=== PATIENT | male | born 1935 | race Caucasian/White ===

== ENCOUNTER 2017-08-02 08:00 | Outpatient (CLI) | payer MEDICARE | END 2017-08-02 08:01 | disposition home or self-care (01) | LOC: BICRAD 08:00 | PROVIDERS: ATTEND Internal Medicine Gastroenterology | DX: K50.10 Crohn's disease of large intestine without complications (principal); R63.4 Abnormal weight loss; R94.5 Abnormal results of liver function studies; R19.7 Diarrhea, unspecified | CPT/HCPCS: 71046 ==

== ENCOUNTER 2017-08-21 10:28 | Emergency (ER) | payer MEDICARE ==
[2017-08-21] MEDS ORDERED: Methocarbamol 500 MG TAB ONE (11:23)
[2017-08-21] MEDS ORDERED: Ketorolac Tromethamine 30 MG/ML VIAL ONE (11:23)
[2017-08-21] MEDS ORDERED: HYDROcodone/Acetaminophen 5/325 mg Tablet ONE (12:38)
--- NOTE | 2017-08-21 14:45 | RAD ---
THREE VIEW LUMBAR SPINE SERIES: CLINICAL HISTORY: Low back pain, right-sided. FINDINGS: Left convexity curvature is centered at the upper lumbar spine. There is age-indeterminate mild supe rior end plate height loss of L2 and minimal superior end plate height loss of L1 and L3. There is m oderate multilevel degenerative change. Slight fragmentation suggested at osteophytosis of the anter osuperior L5 segment. There is atherosclerosis. IMPRESSION: 1. Age-indeterminate areas of height loss of the lumbar spine as above. Correlate clinically. 2. Moderate degenerative change. 3. Atherosclerosis. POS: [facility]
--- NOTE | 2017-08-21 14:47 | RAD ---
THORACIC SPINE RADIOGRAPH SERIES 3 VIEWS: COMPARISON: 03/19/17. INDICATION: Back pain. History of T7 fracture. FINDINGS: Redemonstration of height loss at the mid thoracic spine with mild kyphosis. Multilevel degenerative change present. There is atherosclerotic vascular disease of the imaged aorta. Reference the concurrently dictated lumbar spine radiograph series for further details. IMPRESSION: Grossly stable appearance of thoracic spine comparing to 03/19/17 radiograph. POS: [facility]
== END 2017-08-21 12:50 | disposition home or self-care (01) ==
LOC: SCSER 10:28
DX: M54.5 Low back pain (principal); Z87.891 Personal history of nicotine dependence
CPT/HCPCS: 72072; 72100; 96372; J1885

== ENCOUNTER 2017-08-31 09:03 | Outpatient (CLI) | payer MEDICARE | END 2017-08-31 09:04 | disposition home or self-care (01) | LOC: BICMAMMO 09:03 | PROVIDERS: ATTEND Internal Medicine | DX: Z13.820 Encounter for screening for osteoporosis (principal); M81.0 Age-related osteoporosis without current pathological fracture | CPT/HCPCS: 77080 ==

== ENCOUNTER 2018-07-30 12:03 | Observation (INO) | payer MEDICARE ==
[2018-07-30 12:49] LABS: Hemoglobin 13.5 g/dL (14.0-18.0); Mean Corpuscular HGB CONC 32.9 g/dL (32.0-36.0); Mean Corpuscular Hemoglobin 30.2 pg (27.0-31.0); Mean Corpuscular Volume 91.8 fL (78.0-98.0); Mean Platelet Volume 6.3 fL (7.4-10.4); Platelet Count 187 thou/uL (130-400); RBC Distribution Width 13.2 % (11.5-14.5); Red Blood Cell (RBC) Count 4.48 mill/uL (4.70-6.10); White Blood Cell (WBC) Count 5.2 thou/uL (4.8-10.8)
[2018-07-30 12:55] LABS: ALT (SGPT) 16 U/L (8-55); AST (SGOT) 21 U/L (5-34); Albumin 4.1 g/dL (3.4-4.8); Alkaline Phosphatase 79 U/L (40-150); Anion Gap 14 mmol/L (10-20); BUN (Urea Nitrogen) 21 mg/dL (8.4-25.7); Bilirubin, Total 0.7 mg/dL (0.2-1.2); Calc. Creatinine Clearance 0 mL/min (70-130); Calcium 10.4 mg/dL (7.8-10.44); Carbon Dioxide 29 mmol/L (23-31); Chloride 102 mmol/L (98-107); Estimated GFR-MDRD 63; Globulin 3.7 g/dL (2.4-3.5); Glucose 113 mg/dL (83-110); Potassium 3.9 mmol/L (3.5-5.1); Protein, Total 7.8 g/dL (5.8-8.1); Sodium 141 mmol/L (136-145)
[2018-07-30 13:01] LABS: Band 2 % (5-11); Eosinophils 2 % (0-10); Lymphocytes 12 % (21-51); MDiff Complete? YES; Monocytes 16 % (0-10); Neutrophil 67 % (42-75); Platelet Morphology Comment Appears Adequate; RBC Morphology Normal
[2018-07-30 13:13] LABS: CKMB 5.7 ng/mL (0-6.6)
[2018-07-30] MEDS ORDERED: Aspirin 325 MG TAB ONE (13:15)
--- NOTE | 2018-07-30 13:27 | RAD ---
TWO VIEWS OF THE CHEST: COMPARISON: 08/02/2017. HISTORY: Dizziness and head pressure. Presyncope. FINDINGS: Two views of the chest show normal sized cardiomediastinal silhouette. There is no evidence of consol idation, mass, or pleural effusion. Degenerative changes are seen in the spine. IMPRESSION: No evidence of acute cardiopulmonary disease. POS: [facility]
[2018-07-30] MEDS ORDERED: Nitroglycerin 0.4 MG TAB (25 Tab Bottle) SL PRN (16:23)
[2018-07-30 16:24] VITALS: BMI 30.5
--- NOTE | 2018-07-30 18:20 | ULT ---
CAROTID DUPLEX ULTRASOUND: 07/30/18 INDICATION: Near syncope. FINDINGS: There is diffuse mild atherosclerotic disease involving the common carotid and internal carotid arter ies bilaterally. No hemodynamically significant stenosis is evident based on the velocity measurement s. There is mild partially calcified plaque involving the right carotid bulb and proximal right exter nal carotid artery. There is mild atherosclerotic plaque involving the left carotid bulb. Peak systolic velocity within the right ICA of 94.9 cm/s and the right CCA 156.4 cm/s. Peak systolic velocity in the left ICA was 104.2 cm/s and left CCA was 151.4 cm/s. The right IC/CC ratio was 0.61 and left was 0.69. Antegrade flow was seen to both vertebral arteries. IMPRESSION: No hemodynamically significant stenosis. POS: [facility]
--- NOTE | 2018-07-30 18:40 | HP ---
CHIEF COMPLAINT: Near syncope. HISTORY OF PRESENT ILLNESS: This patient is an 83-year-old male with history of ulcerative colitis without any neuro or cardiac history. The patient reports that he awoke in the middle of the night last evening to go to the bathroom and he felt a sensation in his neck and his head like it was going to explode. He managed himself rest and back to sleep. When he woke up this morning, he had exacerbation of his chronic back pain, which he said is a bit unusual and he felt like he could not mentally focus and was lightheaded and dizzy and felt like he might pass out. He denies actually having any syncope. He reports that he has had some similar spells in the past, which were brief. He denies specifically any chest pain, shortness of breath or nausea presently. He still feels a little bit dizzy when he gets up and around, but better if he is still. He denies any specific cardiac history, although he did have a stress test several months ago at his primary care physician's office (Dr. Adebayo Tavarez). PAST MEDICAL HISTORY: Notable for chronic back pain with apparent vertebral compression fractures related to osteoporosis. He has ulcerative colitis. PAST SURGICAL HISTORY: Appendectomy, herniorrhaphy, total knee replacement bilaterally, cataract ectomy and vertebroplasty by Dr. Miller. FAMILY HISTORY: Mother had diabetes. Sister who is couple of years older than him has dementia. SOCIAL HISTORY: The patient has occasional alcohol use. He denies tobacco. He is single but has a significant other that he refers to her as his "friend." He is full code and his daughter would be his surrogate decision maker and she works at this facility in Day Surgery. Her name is Fifi Leos. REVIEW OF SYSTEMS: The patient only reports some slight discomfort in the left groin area when he is straining, but all other systems were reviewed and all pertinent positives and negatives noted in the history of present illness. ALLERGIES: NSAIDS. HOME MEDICATIONS: 1. Prilosec 1 p.o. daily. 2. Fosamax 70 mg weekly. 3. Gabapentin 600 mg b.i.d. 4. Ferrous sulfate 27 mg p.o. daily. 5. Vitamin D3 of 5000 units daily. 6. Multivitamin one daily. 7. Mesalamine one p.o. b.i.d. 8. Prednisone 10 mg b.i.d. 9. Azathioprine 50 mg t.i.d. 10. Calcium 600 mg b.i.d. 11. Vitamin B complex one p.o. daily. PHYSICAL EXAMINATION: VITAL SIGNS: BP 161/85, pulse originally in the emergency room was 137, was down to 90 at the time of transfer, respirations 19, O2 saturations 94% on room air. GENERAL APPEARANCE: Age-appropriate male in no distress. He is awake, alert, oriented, pleasant, and cooperative. NECK: Supple and symmetric without bruit auscultated. HEART: Regular with 2/6 murmur systolic heard throughout the precordium, but more in the aortic position. LUNGS: Clear to auscultation bilaterally. Good chest wall expansion and air exchange. No wheezes or rales. ABDOMEN: Soft, nontender, and nondistended. Positive bowel sounds. No masses. No organomegaly. EXTREMITIES: Lower extremities show no evidence of cyanosis, clubbing, or edema. SKIN: Warm and dry. NEUROLOGICAL: Appears to be fully intact with no focal deficits. He is very appropriate and accurate in his conversation. PSYCH: The patient has normal affect and behavior. LABORATORY DATA: White count 5.2, hemoglobin 13.5, platelets 187, 67% neutrophils, 2% bands, 12% lymphocytes, 16% monocytes. Sodium 141, potassium 3.9, chloride 102, CO2 29, BUN 21, creatinine 1.11, glucose 113, calcium 10.4, AST 21, ALT 16, troponin 0.269, albumin 4.1. Chest x-ray shows no evidence of cardiopulmonary disease. EKG shows regular tachycardia which at the rate of 140. He does have a baseline bundle branch block. IMPRESSION AND PLAN: 1. Near syncopal type episode. The patient's symptoms are little difficult to find concerning for the sensation of pressure in his head and neck in the evening. We will obtain a head CT as I cannot rule out possibility of this was some type of anginal equivalent. He will remain on rule out protocol with serial enzymes and telemetry. I will also obtain echocardiogram given that he has a heart murmur that he has not been made aware of in the past. We will also get carotid Dopplers given the bundle branch block. We will also check a D-dimer. It is unclear if the patient's bundle branch block is new or not. The patient reports he has never been told he had any abnormalities of his EKG. Therefore, with these symptoms and a new bundle branch block in the setting of slightly elevated troponins, we will go ahead and get Cardiology consult as well. 2. Tachycardia. Regular. Present at the time of presentation to the ED, but resolved spontaneously and quickly. 2. History of ulcerative colitis. We will continue with his usual oral medication regimen. 3. History of osteoporosis. Continue Fosamax. Job ID: [id number] [facility]
--- NOTE | 2018-07-30 19:07 | CON ---
DATE OF CONSULTATION: 07/30/2018 REASON FOR CONSULTATION: Dizziness, lightheadedness, and presyncope. HISTORY OF PRESENT ILLNESS: Mr. Roldan is a very pleasant 83-year-old gentleman with no significant past medical history, who recently states he awoke with head amor. He states his neck and head felt like they were going to explode. This subsided after 1 hour. He then went back to bed. He then awoke and had intermittent dizziness, lightheadedness and felt like he was going to pass out. He was seen and evaluated in the emergency room. Likely, one of the EKGs done while in the emergency room did suggest SVT. Heart rate was in the 140s. He does have an underlying left bundle-branch block. He recently underwent a noninvasive stress study at Dr. Tavarez' office that was negative for ischemia. PAST MEDICAL HISTORY: Chronic back pain, ulcerative colitis, appendectomy, total knee replacement, cataract surgery, and vertebroplasty. SOCIAL HISTORY: Occasional alcohol use. No current tobacco use. ALLERGIES: NONSTEROIDALS. HOME MEDICATIONS: Include; 1. Prilosec. 2. Fosamax. 3. Gabapentin. 4. Iron sulfate. 5. Vitamin D3. 6. Multivitamin. 7. Mesalamine. 8. Prednisone. 9. Calcium. 10. Vitamin B. REVIEW OF SYSTEMS: A 10-point review of systems is reviewed and as above, otherwise negative. PHYSICAL EXAMINATION: GENERAL: Patient is a pleasant gentleman, who is in no acute distress. The patient appears their stated age. VITAL SIGNS: Blood pressure 160/82, pulse 84, and temperature 98. NEUROLOGIC: The patient is alert and oriented x3 with no focal neurologic deficits. HEENT: Sclerae without icterus. Mouth has moist mucous membranes with normal pallor. NECK: No JVD. Carotid upstroke brisk. No bruits bilaterally. LUNGS: Clear to auscultation with unlabored respirations. BACK: No scoliosis or kyphosis. CARDIAC: Regular rate and rhythm with normal S1 and S2. No S3 or S4 noted. No significant rubs, murmurs, thrills, or gallops noted throughout the precordium. PMI is not displaced. There is no parasternal heave. ABDOMEN: Soft, nontender, nondistended. No peritoneal signs present. No hepatosplenomegaly. No abnormal striae. EXTREMITIES: 2+ femoral and 2+ dorsalis pedis pulses. No cyanosis, clubbing, or edema. SKIN: No gross abnormalities. LABORATORY DATA: Peak troponin 0.26, creatinine 1.1. Hemoglobin 13.5, white blood cell count 5.2. EKG, as above. IMPRESSION: 1. Supraventricular tachycardia. 2. Elevated troponin. RECOMMENDATION: The increased troponin likely ino-CC-[id number] elevation AR type 2 and not felt to be type 1. This is secondary to SVT. At this point, we will load with digoxin. We will consult with EP on Wednesday for further recommendations. The patient would likely benefit from ablation given presyncopal symptoms. Job ID: [id number]
[2018-07-30 19:35] LABS: Troponin I 0.392 ng/mL (< 0.028)
[2018-07-30] MEDS: Digoxin 0.25 MG TAB PO SCH (19:45)
[2018-07-30] MEDS: Gabapentin 300 MG CAP PO SCH (20:32)
[2018-07-30] MEDS: Mesalamine DR 400 mg Capsule PO SCH (20:33)
[2018-07-30] MEDS ORDERED: predniSONE 20 MG TAB PO SCH (21:00)
[2018-07-31] MEDS: Digoxin 0.25 MG TAB PO SCH ×2 (00:19→06:11)
[2018-07-31] MEDS ORDERED: Amlodipine 5 MG TAB PO SCH (05:00)
[2018-07-31] MEDS ORDERED: Labetalol HCl 100 MG/20 ML VIAL SLOW IVP PRN (08:44)
[2018-07-31] MEDS ORDERED: azaTHIOprine 50 MG TAB PO SCH (09:00)
[2018-07-31] MEDS: azaTHIOprine 50 MG TAB PO SCH (09:14)
[2018-07-31] MEDS: Calcium Carbonate 600 MG TAB PO SCH (09:15)
[2018-07-31] MEDS: Ferrous Sulfate 325 MG TAB PO SCH (09:15)
[2018-07-31] MEDS: Multivitamin W/ Minerals 1 TAB PO SCH (09:15)
[2018-07-31] MEDS: Mesalamine DR 400 mg Capsule PO SCH ×3 (09:21→21:08)
[2018-07-31] MEDS: Gabapentin 300 MG CAP PO SCH ×2 (09:22→21:05)
[2018-07-31] MEDS: hydrALAZINE 20 MG/ML VIAL SLOW IVP PRN ×2 (09:28→21:13)
--- NOTE | 2018-07-31 13:06 | PDOC.CTH ---
Cardiology Progress Note - Subjective Patient reports one dizzy spell earlier. No near syncope. BP elevated. No CP/ SOB. - Objective Vital Signs Temp Pulse Resp BP BP Pulse Ox 07/31/18 12:00 167/78 H 07/31/18 10:10 97.7 F 96 16 159/76 H 96 07/31/18 09:28 87 208/93 H 07/31/18 08:21 97.9 F 80 16 208/93 H 95 07/31/18 06:11 92 07/31/18 05:10 79 183/80 H 07/31/18 04:28 98.1 F 81 18 183/80 H 93 L 07/31/18 00:20 97.8 F 82 16 169/87 H 93 L 07/31/18 00:19 82 Weight 180 lb 07/30/18 07/31/18 08/01/18 05:59 06:59 06:59 Intake Total Output Total Balance - Physical Examination General/Neuro: alert & oriented x3 Neck: no JVD present Lungs: CTA Heart: RRR Abdomen: NT/ND - Telemetry Telemetry Rhythm: SR - Labs Result Diagrams: 07/30/18 12:31 07/30/18 12:31 Troponin/CKMB CK-MB (CK-2) 5.7 ng/mL (0-6.6) 07/30/18 12:31 Troponin I 0.392 ng/mL (< 0.028) H* 07/30/18 18:43 - Assessment/Plan 1. Dizziness 2. Cardiac Murmur 3. Uncontrolled HTN 4. PSVT 5. Elevated Trop - demand ischemia Add ARB for HTN. Patient given history of being on meds years ago prior to weight loss. Then recently has gained weight and not been checking BP at home. ECHO pending, but will r/o significant valvular disease. EP to see tomorrow.
[2018-07-31] MEDS ORDERED: Losartan 25 MG TAB PO SCH ×2 (13:15→21:00)
--- NOTE | 2018-07-31 16:36 | PDOC.PN ---
- Subjective Encounter Start Date: 07/31/18 Encounter Start Time: 16:33 Patient lying in bed with friend at bedside. He denies chest pain, palpitations , shortness of breath. He reports feeling dizziness walking to the bathroom this morning, BPs remain elevated - Objective Resuscitation Status - Order Detail: 07/30/18 16:11 Resuscitation Status Routine Resuscitation Status: FULL: Full Resuscitation Discussed with: Patient MAR Reviewed: Yes Vital Signs & Weight: Vital Signs (12 hours) Temp Pulse Resp BP BP Pulse Ox 07/31/18 15:53 98.1 F 83 16 184/84 H 93 L 07/31/18 12:00 167/78 H 07/31/18 10:10 97.7 F 96 16 159/76 H 96 07/31/18 09:28 87 208/93 H 07/31/18 08:21 97.9 F 80 16 208/93 H 95 07/31/18 06:11 92 07/31/18 05:10 79 183/80 H Weight Weight 180 lb I&O: 07/30/18 07/31/18 08/01/18 05:59 06:59 06:59 Intake Total Output Total Balance Result Diagrams: 07/30/18 12:31 07/30/18 12:31 Radiology Reviewed by me: Yes Phys Exam - Physical Examination Constitutional: NAD HEENT: PERRLA, moist MMs, oral pharynx no lesions Neck: no nodes, supple Respiratory: no wheezing, clear to auscultation bilateral Cardiovascular: RRR, no rub 2/6 systolic murmur Gastrointestinal: soft, non-tender, positive bowel sounds Musculoskeletal: no edema, pulses present Neurological: non-focal, moves all 4 limbs Lymphatic: no nodes Psychiatric: normal affect, A&O x 3 Skin: cap refill <2 seconds Dx/Plan (1) PSVT (paroxysmal supraventricular tachycardia) Code(s): I47.1 - SUPRAVENTRICULAR TACHYCARDIA Status: Acute (2) Dizziness Code(s): R42 - DIZZINESS AND GIDDINESS Status: Acute (3) Near syncope Status: Acute (4) HTN (hypertension) Code(s): I10 - ESSENTIAL (PRIMARY) HYPERTENSION Status: Acute - Plan cont current plan of care * Continue BP control with losartan and prn IV hydralazine and lebatolol * Appreciate further recommendation from EP services * Monitor on telemetry * Monitor vitals and cbc, bmp * Cardiology services following, await echo
[2018-08-01] MEDS: hydrALAZINE 20 MG/ML VIAL SLOW IVP PRN (01:22)
[2018-08-01 08:47] VITALS: TEMP 97.9
[2018-08-01] MEDS ORDERED: Amlodipine 5 MG TAB PO SCH (09:00)
[2018-08-01] MEDS ORDERED: Lisinopril 5 MG TAB PO SCH (09:00)
--- NOTE | 2018-08-01 09:03 | PDOC.CTH ---
Cardiology Progress Note - Subjective No overnight events. Seen by EP. Suggests 30 day EVR and bblockers for now. - Objective Vital Signs Temp Pulse Resp BP BP Pulse Ox 08/01/18 07:55 97.9 F 84 16 162/72 H 95 08/01/18 05:30 86 145/70 H 08/01/18 03:20 98 F 112 H 20 178/76 H 94 L 08/01/18 02:02 90 168/80 H 08/01/18 01:22 90 204/92 H 08/01/18 01:17 96 204/92 H 07/31/18 23:22 98.2 F 88 20 174/82 H 93 L 07/31/18 21:13 92 202/92 H Weight 181 lb 11.2 oz 07/31/18 08/01/18 08/02/18 06:59 06:59 06:59 Intake Total 1520 Output Total 720 Balance 800 - Physical Examination General/Neuro: alert & oriented x3 Neck: no JVD present Lungs: CTA Heart: RRR Abdomen: NT/ND - Telemetry Telemetry Rhythm: SR - Labs Result Diagrams: 07/30/18 12:31 07/30/18 12:31 Troponin/CKMB CK-MB (CK-2) 5.7 ng/mL (0-6.6) 07/30/18 12:31 Troponin I 0.392 ng/mL (< 0.028) H* 07/30/18 18:43 - Assessment/Plan 1. Dizziness 2. Cardiac Murmur 3. Uncontrolled HTN 4. PSVT 5. Elevated Trop - demand ischemia Norvasc added for HTN to start today. Will add Toprol for SVT history. ECHO to be repeated given limited AV images. Elevated trop most likely demand ischemia with increased BP and SVT. Will order stress to r/o ischemia since patient already NPO and plan to monitor BP today. If BP stabilizes and stress negative, possible discharge today once repeat ECHO read.
[2018-08-01] MEDS: Ferrous Sulfate 325 MG TAB PO SCH (10:12)
[2018-08-01] MEDS: azaTHIOprine 50 MG TAB PO SCH (10:12)
[2018-08-01] MEDS: Multivitamin W/ Minerals 1 TAB PO SCH (10:12)
[2018-08-01] MEDS: Calcium Carbonate 600 MG TAB PO SCH (10:12)
[2018-08-01] MEDS: Mesalamine DR 400 mg Capsule PO SCH ×2 (10:12→14:23)
[2018-08-01] MEDS: Gabapentin 300 MG CAP PO SCH (10:12)
--- NOTE | 2018-08-01 15:22 | NM ---
MYOCARDIAL PERFUSION SCAN: INDICATIONS: Chest pain. TECHNIQUE: The patient was given 10 millicuries of technetium sestamibi for rest imaging and 30 millicuries for stress imaging. Adenosine protocol was followed. The left ventricle was imaged with SPECT imaging. The left ventricle was imaged in three planes. At tenuation correction images were obtained. FINDINGS: There is normal activity throughout the left ventricle on stress and rest images. No evidence of rev ersible ischemia. Ejection fraction recorded at 70%. No wall motion abnormality. IMPRESSION: Negative sestamibi stress test. POS: [facility]
[2018-08-01] MEDS ORDERED: Acetaminophen 325 MG TAB PO PRN (15:41)
[2018-08-01 15:53] VITALS: BP 144/67
[2018-08-01] MEDS ORDERED: ADENOSINE 60 MG/20 ML VIAL ONE (16:04)
--- NOTE | 2018-08-01 18:56 | CON ---
DATE OF CONSULTATION: 08/01/2018 I am seeing Mr. Roldan at our [facility] floor as an Electrophysiology retail client solutions consultant. His problems are: 1. Near syncopal spell. 2. Presentation with supraventricular tachycardia, rate 140 with spontaneous termination. 3. Chronic right bundle branch block. 4. Moderate aortic stenosis based on 2D echo from 08/01/2018 with LVEF 55% to 60%, mild mitral regurgitation and tricuspid regurgitation. Left atrium is moderate to severely enlarged. 5. History of hypertension. ALLERGIES: NONSTEROIDAL ANTI-INFLAMMATORY DRUGS. MEDICATIONS: At home include: 1. Prilosec. 2. Fosamax. 3. Gabapentin. 4. Ferrous sulfate with vitamin D3. 5. Multivitamin. 6. Mesalamine. 7. Prednisone. 8. Azathioprine. 9. Calcium. 10. Vitamin B. SUBJECTIVE: Mr. Roldan is here admitted on the with complaints of neck fullness and exploding discomfort in the head. He felt still lightheaded and dizzy next day when he woke up and decided to come to the ER. In the ER, he was noted to be in tachyarrhythmia, which spontaneously resolved. Actual duration is unclear. He was monitored subsequently for last 2 days and no recurrences are noted. His symptoms have normalized. His blood pressure was elevated and initiated on metoprolol. His blood pressure improved now to 144/67 range. He denies PND, orthopnea, or lower extremity edema. No fever, chills, or cough. No stroke-like symptoms. The rest of 12-point review of system otherwise unremarkable. PAST MEDICAL HISTORY: As above. SOCIAL HISTORY: The patient denies smoking EtOH or drug abuse. He does drink alcohol only socially. He has significant other who refers as a friend. PAST SURGICAL HISTORY: Significant for appendectomy, herniorrhaphy, total knee replacement bilaterally, cataract surgery, and vertebroplasty in the past. No prior history of heart disease or heart attacks are noted. FAMILY HISTORY: Significant for mother had diabetes and sister had dementia. OBJECTIVE DATA: VITAL SIGNS: Blood pressure is initially 160/82, heart rate 86, respirations 16, temperature 98 degrees Fahrenheit. At time of my exam, blood pressure was 168/80, heart rate 90, respirations 12. The patient is afebrile, temperature 98 degrees Fahrenheit. PHYSICAL EXAMINATION: GENERAL: Alert and oriented man with elevated BMI, in no apparent distress. NECK: Supple. Jugular veins not distended. CHEST: Coarse without crackles. HEART: Sounds are regular to rate and rhythm. No murmur or gallop. ABDOMEN: Benign. Bowel sounds positive. EXTREMITIES: Lower extremities without edema, clubbing, or cyanosis. Pulses are adequate. NEUROLOGIC: The patient is nonfocal. MUSCULOSKELETAL: Without joint swelling or deformities. SKIN: Without rash. DATABASE: EKG is reviewed. Initial EKG reveals regular tachycardia with right bundle normal axis. The P-waves are difficult to elicit. QTc is 519 milliseconds, QRS duration 128 milliseconds. Subsequent EKG reveals sinus rhythm with still right bundle branch block still present similar to the baseline EKG, rate of 92 beats per minute, QTc 462 milliseconds. Subsequent telemetry strips reveal sinus rhythm. No significant arrhythmias. Nuclear stress test shows appropriate blood pressure response, intermittent ECGs and nuclear images negative for ischemia. LVEF 70% noted. ASSESSMENT AND PLAN: Mr. Roldan is a pleasant 83-year-old gentleman with history of hypertension, now presenting with near syncopal spell, which relatively new for him. His blood pressures and heart rate were both elevated on presentation. He was diagnosed with supraventricular tachycardia, which spontaneously terminated and have never recurred during his hospitalization. His blood pressure is still elevated. He started on metoprolol and is tolerating this medication well. He also has moderate aortic stenosis, although, not felt to be severe enough for consideration of surgery. I have discussed pros and cons about electrophysiology evaluation in his case. At this point, we agreed on continuing medical therapy with beta adrien. He also requested to undergo a monitor. I would like to see him back in the office after composition monitor, especially further symptomatic dizzy or tachyarrhythmia episodes occur. The etiology of SVT is difficult to elicit, reentry type of arrhythmia, possibly AVNRT, possibility but in view of the significant left atrial enlargement, atrial tachycardia was also could be present. Thank you again for allowing me to participate in the care of this patient. Job ID: [id number]
--- NOTE | 2018-08-02 03:17 | DIS ---
DATE OF ADMISSION: 07/30/2018 DATE OF DISCHARGE: 08/01/2018 ALLERGIES: NSAIDS. CHIEF COMPLAINT: Near-syncope/dizziness. FINAL DIAGNOSES: 1. Supraventricular tachycardia, atrioventricular adelaide reentrant tachycardia versus atrial tachycardia with spontaneous resolution; aortic stenosis, moderate; diastolic dysfunction. 2. Hypertension. 3. Osteoporosis. LABORATORY DATA: White blood cell count 5.2, hemoglobin 13.5, and hematocrit 41.2. D-dimer 0.7. Sodium 141, potassium 3.9, chloride 102, BUN 21, and creatinine 1.11. AST 21, ALT 16, and alkaline phosphatase 79. Troponin 0.37 and 0.392 respectively. IMAGING RESULTS: Echocardiogram, normal left ventricular systolic function with EF 60% to 65%, moderate aortic stenosis, and diastolic dysfunction. Carotid Doppler, no hemodynamically significant stenosis. Stress test. Myocardial perfusion scan showed no evidence of reversible ischemia and normal left ventricular systolic function with EF of 70%. CONSULTATIONS: 1. Cardiology consultation, Dr. Andersen. 2. EP consult, Dr. Arias. HOSPITAL COURSE: The patient is a very pleasant 83-year-old male with no significant past medical history, who presented to the ER with complaints of near syncope and dizziness. His symptoms are exacerbated with change of position. The patient denies any chest pain or shortness of breath. He has had intermittent dizziness in the past, because of his near syncope, he presented to the ER for further workup and treatment. Initial EKG performed in the ER showed right bundle-branch block and what appeared to be supraventricular tachycardia with a rate of 140 beats per minute. He did have spontaneous resolution of this rhythm and followup EKG showed sinus rhythm with a right bundle-branch block, no acute ST or T-wave changes, and a ventricular rate of 92 beats per minute. His troponin was indeterminate, and he was admitted for telemetry monitoring and chest pain rule out. The patient did not have any further episodes of tachycardia per telemetry review. He was seen in consultation with Dr. Andersen as well as Dr. Arias. It was decided that the patient would be treated medically for now with beta-adrien, and no immediate plans for ablation would be pursued at this time. Because of the patient's indeterminate troponin, he did undergo a stress test/MPI, which was negative. His echocardiogram on admission showed normal left ventricular systolic function with normal EF and moderate aortic stenosis. The patient's presenting symptoms of dizziness have completely resolved. He denies any chest pain or shortness of breath. Due to his hypertension, he has been initiated on lisinopril as well as amlodipine with good response in his blood pressure. He has also been initiated on Toprol-XL 25 mg to prevent further episodes of tachycardia. He has tolerated his medications without issue. The patient feels well this afternoon after his stress test. He denies any chest pain, shortness of breath, or dizziness. He denies any palpitations. His family is at bedside and all questions answered. PHYSICAL EXAMINATION: VITAL SIGNS: Blood pressure 144/67, temperature 97.9, pulse 78, respirations 18, and O2 saturation 95% on room air. GENERAL: This is a well-appearing elderly male, in no acute distress. HEENT: Atraumatic and normocephalic. Eye movements intact. NECK: Supple, no JVD. No carotid bruits. RESPIRATORY: Regular respiratory rate and pattern, clear to auscultation bilaterally. CV: S1, S2. Regular rate and rhythm. Soft systolic murmur grade 1/6. GI: Soft, nontender. Normal bowel sounds. PERIPHERAL VASCULAR: +2 DP pulses bilaterally, trace edema. MUSCULOSKELETAL: No joint effusion or swelling. NEUROLOGIC: He is awake and alert, nonfocal. SKIN: Normal, dry, no rashes. CONDITION AT DISCHARGE: Stable. DISCHARGE MEDICATIONS: 1. Fosamax 70 mg p.o. daily. 2. Imuran 50 mg tablet 3 tablets p.o. daily. 3. Calcium carbonate 600 mg tablet 2 tablets p.o. daily. 4. Vitamin D3 supplement 5000 unit capsule 5000 units p.o. daily. 5. Ferrous sulfate 27 mg tablet 1 p.o. daily. 6. Gabapentin 600 mg p.o. b.i.d. 7. Mesalamine 1.2 g tablet 1 tablet p.o. daily. 8. Multivitamin 1 tablet p.o. daily. 9. Prilosec 20 mg capsule 1 tablet p.o. daily. 10. Vitamin B complex supplement 1 daily. New medications include; 1. Amlodipine 5 mg one tablet p.o. daily. 2. Lisinopril 10 mg one p.o. daily. 3. Metoprolol succinate 25 mg tablet 1 tablet p.o. daily. DISCHARGE DISPOSITION: Home. PLAN: The patient will be discharged with a 30-day telemetry/event recorder. He will continue his new antihypertensive regimen and monitor his blood pressure at home. He will follow up with both, Dr. Andersen and his primary care doctor, Dr. Tavarez in approximately 2 weeks. He will contact Dr. Andersen's office with further symptoms, tachycardia, or palpitations. The plan of care has been discussed with his family and all questions have been answered at this time. He has been cleared for discharge on medical therapy by both Cardiology and EP. Job ID: [id number]
== END 2018-08-01 17:33 | disposition home or self-care (01) ==
LOC: SCSER 12:03 → 2SW 15:25
PROVIDERS: ADMIT Internal Medicine; ATTEND Internal Medicine
DX: I47.1 Supraventricular tachycardia (principal); I10 Essential (primary) hypertension; M81.0 Age-related osteoporosis without current pathological fracture; G89.29 Other chronic pain; M54.9 Dorsalgia, unspecified; K51.90 Ulcerative colitis, unspecified, without complications; R42 Dizziness and giddiness; R55 Syncope and collapse; I45.10 Unspecified right bundle-branch block; I35.0 Nonrheumatic aortic (valve) stenosis; Z79.52 Long term (current) use of systemic steroids; Z79.899 Other long term (current) drug therapy; Z88.8 Allergy status to other drugs, medicaments and biological substances; Z98.890 Other specified postprocedural states
CPT/HCPCS: 71046; 78452; 80053; 82553; 84484 ×2; 85025; 85379; 93005; 93017; 93306 ×2; 93880; 94760; 96374; 96375; 96376 ×2; 99285; A9500; G0378 ×2; 36415; 96360; J0153; J0360; J7500

== ENCOUNTER 2018-12-21 08:55 | Outpatient (CLI) | payer MEDICARE ==
--- NOTE | 2018-12-21 10:05 | RAD ---
XR Chest Pa Lat @ [facility] HISTORY: Dyspnea COMPARISON: 07/30/2018 FINDINGS: The heart size is normal. The lungs are well expanded without focal areas of consolidation, pneumothorax or pleural effusions. Chronic changes are stable. There are degenerative changes in the spine. Old right-sided rib fractures are present. IMPRESSION: No radiographic evidence of acute cardiopulmonary process.
== END 2018-12-21 08:56 | disposition home or self-care (01) ==
LOC: RAD 08:55
PROVIDERS: ATTEND Internal Medicine Critical Care Medicine
DX: R06.00 Dyspnea, unspecified (principal)
CPT/HCPCS: 71046

== ENCOUNTER 2018-12-27 07:26 | Outpatient (CLI) | payer MEDICARE | END 2018-12-27 07:27 | disposition home or self-care (01) | LOC: CP 07:26 | PROVIDERS: ATTEND Internal Medicine Critical Care Medicine | DX: R06.00 Dyspnea, unspecified (principal) | CPT/HCPCS: 94060; 94727; 94729 ==

== ENCOUNTER 2019-01-18 10:09 | Outpatient (CLI) | payer MEDICARE ==
--- NOTE | 2019-01-18 13:17 | RAD ---
TWO VIEW CHEST: INDICATION: Dyspnea. COMPARISON: 12/21/2018. FINDINGS: Mild cardiomegaly is stable. Lungs appear clear of infiltrate. Vascular markings upper normal and s table. No significant effusion. Rib deformities on the right from old fractures appear stable. Mild apical pleural thickening on the right is stable Stable chest findings, no acute interval change noted. POS: [facility]
--- NOTE | 2019-01-18 13:30 | NM ---
NUCLEAR MEDICINE VENTILATION PERFUSION SCAN: 01/18/19 HISTORY: Shortness of breath. COMPARISON: Chest x-ray done today. The ventilation study was performed using 19.9 millicuries of Xenon 133 gas. This shows air trapping. The perfusion study was performed using 6.6 millicuries 99m technetium MAA. Shows fairly normal dist ribution of the radiopharmaceutical. IMPRESSION: 1. Findings compatible with a very low probability of pulmonary embolus. 2. Evidence for fairly diffuse air trapping. POS: [facility]
== END 2019-01-18 10:10 | disposition home or self-care (01) ==
LOC: NM 10:09
PROVIDERS: ATTEND Internal Medicine Critical Care Medicine
DX: I26.99 Other pulmonary embolism without acute cor pulmonale (principal)
CPT/HCPCS: 71046; 78582; A9540; A9558

== ENCOUNTER 2019-03-08 11:39 | Outpatient (CLI) | payer MEDICARE ==
--- NOTE | 2019-03-13 22:52 | EKG ---
Test Reason : Blood Pressure : / mmHG Vent. Rate : 062 BPM Atrial Rate : 062 BPM P-R Int : 192 ms QRS Dur : 136 ms QT Int : 418 ms P-R-T Axes : 055 059 017 degrees QTc Int : 424 ms Normal sinus rhythm Right bundle branch block Abnormal ECG When compared with ECG of 30-JUL-2018 12:26, Vent. rate has decreased BY 30 BPM Confirmed by LILIA SINGLETON M.D. ([id number]) on 03/13/2019 10:52:41 PM Referred By: TARA Confirmed By:LILIA SINGLETON M.D.
== END 2019-03-08 11:40 | disposition home or self-care (01) ==
LOC: LABBT 11:39
PROVIDERS: ATTEND Surgery
DX: Z01.818 Encounter for other preprocedural examination (principal); C44.92 Squamous cell carcinoma of skin, unspecified
CPT/HCPCS: 93005; 93010

== ENCOUNTER 2019-03-13 09:44 | Day surgery (SDC) | payer MEDICARE ==
[2019-03-08 12:33] VITALS: BMI 36.5
[2019-03-13] MEDS ORDERED: cefOXitin 2 GM VIAL ONE (10:52)
[2019-03-13] MEDS ORDERED: Sodium Chloride 0.9% 100 ML ONE (10:52)
[2019-03-13] MEDS ORDERED: Bupivacaine/Epinephrine 0.25% 30 ML VIAL ONE (11:48)
[2019-03-13] MEDS ORDERED: Bupivacaine HCl 0.5%/Epinephrine 1:200,000/PF 30 ml Vial ONE (11:53)
[2019-03-13] MEDS ORDERED: Lidocaine 2% PF 5 ML VIAL ONE (11:53)
[2019-03-13] MEDS ORDERED: Famotidine/PF 20 mg/2ml Vial ONE (11:57)
[2019-03-13] MEDS ORDERED: Fentanyl 100 MCG/2 ML VIAL ONE (11:57)
[2019-03-13] MEDS ORDERED: Labetalol HCl 100 MG/20 ML VIAL ONE (13:55)
[2019-03-13] MEDS ORDERED: hydrALAZINE 20 MG/ML VIAL ONE (13:57)
[2019-03-13] MEDS ORDERED: PROPOFOL 200 MG/20 ML VIAL ONE (14:42)
[2019-03-13] MEDS ORDERED: Lidocaine 1% PF 5 ML VIAL ONE (14:42)
[2019-03-13] MEDS ORDERED: PHENYLEPHRINE-NS 100 MCG/ML 10 ML SYRINGE ONE (14:42)
[2019-03-13] MEDS ORDERED: Ondansetron PF 4 MG/2 ML Vial ONE (14:42)
--- NOTE | 2019-03-13 14:44 | OP ---
DATE OF PROCEDURE: 03/13/2019 PREOPERATIVE DIAGNOSES: 1. Squamous cell carcinoma, right forearm. 2. Squamous cell carcinoma, left upper extremity. PROCEDURES PERFORMED: 1. Excision of squamous cell carcinoma, right forearm 2.5 cm in greatest diameter and complex layered closure 7.5 cm in length. 2. Wide local excision of skin cancer, left upper arm 3 cm in greatest diameter. 3. Complex layered closure of wound, left upper extremity 9 cm in length. ANESTHESIA: General. ESTIMATED BLOOD LOSS: Minimal. COMPLICATIONS: None. SPECIMENS: Right forearm and left arm lesions sent to Path, which revealed no positive margin. DESCRIPTION OF PROCEDURE: The patient was taken to the operating room and laid supine on the operating room table. After general anesthetic was obtained, the right and left upper extremities were prepped and draped in a sterile fashion. An elliptical incision was used with a 2.5 cm greatest diameter excision in the right arm. Dissection was taken down to the fascia. The specimen was marked with 2 short superior, 1 long lateral, and sent to Path for frozen section, which revealed negative margins. Extensive undermining was performed to facilitate closure under no tension. The wound was closed in multiple layers using Vicryl, Monocryl, and Dermabond. Next, elliptical incision was made in the left upper extremity with a 3 cm greatest diameter incision, 9 cm length incision. The specimen was marked with 2 short superior, 1 long lateral, and frozen section revealed no obvious positive margin. The wound was closed after extensive undermining with layered closure of 3-0 Vicryl, 4-0 Monocryl, and Dermabond. The patient was sent to Recovery in stable condition. All instrument counts, needle counts, and lap counts were correct. Job ID: [id number]
--- NOTE | 2019-03-20 06:17 | PQF ---
[facility] POST DISCHARGE CLINICAL DOCUMENTATION IMPROVEMENT CLARIFICATION FORM l Todays Date: 03/16/19 l Patients Name JOAQUIN TIWARI l l Admit Date 03/13/19 l Disch Date 03/13/19 Airport Maintenance Laborer Name Lake Ng Email: [email or web address] Cell: [phone] To be completed by Airport Maintenance Laborer: Present Clinical Indicators - Signs / Symptoms Results and Location in Medical Record [ ] Documentation of: [ ] [ ] Documentation of: [ ] [ ] Documentation of: [ ] [ ] Documentation of: [ ] [ ] Risks [ ] [ ] [ ] Treatment [ ] Squamous Cell Carcinoma bilateral arms Query for excised margins of both ( left and right arm) lesions [ ] [ ] To be completed by Physician: SAMINA GREGORY The documentation in this patients record requires clarification to ensure coding compliance and accuracy. Check the appropriate box and include in your discharge summary. [ ] [ ] [ ] [ x] Please check this box if this does not apply to this patient [ ] Unable to determine [ ] Other diagnosis: __Skin malignancies are coded based on excised diameter not margins Review the following information and exercise your independent professional judgment in responding to the clarification. Based upon the clinical findings, risk factors, and treatment, please clarify if you are treating one of the above probable or suspected diagnoses. Physician Signature: Date Time MTDD
== END 2019-03-13 15:20 | disposition home or self-care (01) ==
LOC: SDC 09:44
PROVIDERS: ATTEND Surgery
PROC: 0HBDXZZ Excision of Right Lower Arm Skin, External Approach (ICD-10-PCS; principal; 2019-03-13)
PROC: 0HBCXZZ Excision of Left Upper Arm Skin, External Approach (ICD-10-PCS; 2019-03-13)
DX: C44.622 Squamous cell carcinoma of skin of right upper limb, including shoulder (principal); C44.629 Squamous cell carcinoma of skin of left upper limb, including shoulder; K51.90 Ulcerative colitis, unspecified, without complications; Z87.891 Personal history of nicotine dependence; Z79.83 Long term (current) use of bisphosphonates; Z79.899 Other long term (current) drug therapy; Z88.6 Allergy status to analgesic agent
CPT/HCPCS: 88305; 88331; 88332; J0131; J0360; J0670; J0694; J2001; J2405; J2704; J3010; J3490; S0028